=== PATIENT | female | born 1935 | race Caucasian/White ===

== ENCOUNTER → 2023-04-08 | Outpatient (CLI) | payer MEDICARE ==
[2023-04-08 17:17] LABS: THYROID STIMULATING HORMONE 2.35 uIU/mL (0.36-3.74)
== END | disposition home or self-care (01) ==
LOC: LAB 12:57
PROVIDERS: ATTEND Student in an Organized Health Care Education/Training Program
DX: I49.8 Other specified cardiac arrhythmias (principal); Z79.899 Other long term (current) drug therapy
CPT/HCPCS: 36415; 80061; 82306; 82607; 84443

== ENCOUNTER → 2023-05-28 | Outpatient (CLI) | payer MEDICARE ==
[2023-05-28 16:28] LABS: CREATININE 0.8 mg/dL (0.5-1.0); POTASSIUM 4.2 mmol/L (3.5-5.1)
== END | disposition home or self-care (01) ==
LOC: LAB 11:35
PROVIDERS: ATTEND Student in an Organized Health Care Education/Training Program
DX: I71.9 Aortic aneurysm of unspecified site, without rupture (principal)
CPT/HCPCS: 36415; 80048

== ENCOUNTER → 2023-05-29 | Outpatient (CLI) | payer MEDICARE ==
[~2023-05-29] MED LIST: IOHEXOL-350 50ML VIAL IV ONE; IOHEXOL-350 75 ML VIAL IV ONE
== END | disposition home or self-care (01) ==
LOC: RAH 11:01
PROVIDERS: ATTEND Student in an Organized Health Care Education/Training Program
DX: I70.0 Atherosclerosis of aorta (principal); I71.21 Aneurysm of the ascending aorta, without rupture; J43.9 Emphysema, unspecified; I71.9 Aortic aneurysm of unspecified site, without rupture; I73.9 Peripheral vascular disease, unspecified
CPT/HCPCS: 75635; 71275; Q9967 ×2

== ENCOUNTER → 2024-01-21 | Outpatient (CLI) | payer MEDICARE ==
[2024-01-21 12:58] LABS: CHOLESTEROL 235 mg/dL (<200); HDL CHOLESTEROL 105 mg/dL (35-85); LDL DIRECT 118 mg/dL (0-99); TRIGLYCERIDES 29 mg/dL (30-200)
== END | disposition home or self-care (01) ==
LOC: LAB 01-07 11:34
PROVIDERS: ATTEND Student in an Organized Health Care Education/Training Program
DX: E78.5 Hyperlipidemia, unspecified (principal)
CPT/HCPCS: 36415; 80061

== ENCOUNTER 2024-03-27 04:50 | Emergency (ER) | payer MEDICARE ==
[~2024-03-27] VITALS: Ht 162.6 cm; Wt 51.7 kg
--- NOTE | 2024-03-27 05:01 | ERN ---
ED Note History of Present Illness Stated Complaint: RT JAW PAIN " POPPED" Chief Complaint: Other Problems Time Seen by MD: 04:52 Dictation: 88-year-old female presented to the ER complaining of TMJ pain, pain started after she frozen her teeth she believes she has a dislocation or broken bone in the mandibular area. No history of fall. Allergies: Coded Allergies: Penicillins (Unverified Allergy, Unknown, 03/27/24) amoxicillin (Unverified Allergy, Unknown, 03/27/24) Past Medical History Past Medical History: No Pertinent History Surgical History: Other Surgical History Other: LEFT BREAST Family History: Negative Social History: Negative History: Not Applicable RN Note Reviewed/Agreed w/PFSH: Yes Review of System Dictation Constitutional: Negative for fever,chills, and weight loss Eyes: Negative for injury, pain,redness, and discharge ENT: Negative for injury,pain or swelling Cardiovascular: Negative for chest pain, palpitations, and edema Respiratory: Negative for shortness of breath, cough, and wheezing, Abdomen/GI: Negative for abdominal pain, nausea, vomiting, diarrhea, and constipation Back: Negative for injury and pain : Negative for injury, bleeding and discharge MS/Extremity: Negative for injury and deformity Skin: Negative for rash, and discoloration Neuro: Negative for headache, weakness, numbness, tingling, and seizure Psych: Negative for suicide ideation, homicidal ideation, and hallucinations Initial Vital Sign VS Vital Signs Date Time Temp Pulse Resp B/P (MAP) Pulse Ox O2 Delivery O2 Flow Rate FiO2 03/27/24 04:51 97.0 70 16 150/74 99 03/27/24 05:11 Room Air* 0 21 Physical Exam Dictation General: awake, alert, NAD Head/Face: Normocephalic, atraumatic Eyes: PERRL, EOMI, vision at baseline ENT: oral cavity clear, TMs clear, no signs of infection Neck: Trachea midline, supple, no nuchal rigidity Cardiovascular: RRR, normal S1/S2, No MRGs, no JVD Respiratory: CTAB, no respiratory distress, No rales or wheezes Abdomen: Soft, non-tender, non-distended, normal bowel sounds, no guarding or rebound. Skin: Warm, dry, normal turgor, no rash MS/Extremity: Pulses equal, no cyanosis, neurovascular intact, FROM Neuro: COAx4, GCS 15, strength 5/5, CN 2-12 intact, normal cerebellar exam, normal gait, Psych: Normal behavior, mood, and affect normal Extremities-trace edema without any palpable cords, Homans sign is negative ED Course ED Course Orders Procedure Category Date Status Time Hydromorphone 0.5mg PHA 03/27/24 Complete Syg (Dilaudid 0.5mg 05:30 Ct Maxillofacial W/O CT 03/27/24 Resulted Contrast 05:15 Ketorolac PHA 03/27/24 Complete Tromethamine 15mg/Ml 06:30 Current Medications Medications (Trade) Dose Ordered Sig/Hakan Route PRN Reason Start Time Stop Time Status Last Admin Dose Admin Hydromorphone HCl (DiLAUDid 0.5MG INJ) 0.5 mg ONCE ONCE IVP 03/27/24 05:30 03/27/24 05:31 DC 03/27/24 05:27 Ketorolac Tromethamine (toRADol) 15 mg ONCE ONCE IV 03/27/24 06:30 03/27/24 06:31 DC 03/27/24 06:30 Vital Signs Date Time Temp Pulse Resp B/P (MAP) Pulse Ox O2 Delivery O2 Flow Rate FiO2 03/27/24 05:11 74 16 154/81 97 Room Air* 0 21 03/27/24 04:51 97.0 70 16 150/74 99 Medical Decision Making MDM 88-year-old female came to the ER complaining of severe jaw pain, states that the pain started when she was flossing her teeth. Initial impression was the patient has dislocated jaw because she was only able to close the mouth well without pain. Pinched nerve in the TMJ area TMJ dislocation Imaging was performed: CT was performed with one or more of the following dose reduction techniques: Automated exposure control, adjustment of the mA and/or kV according to patient size, or use of iterative reconstruction technique. COMPARISON: None FINDINGS: Extensive streak artifact from dental hardware. No evidence for orbital wall or zygomatic arch fracture. The globes are symmetrical in their appearance, and normal in attenuation. The optic nerves and muscles are normal in caliber. No evidence of preseptal or postseptal mass. No evidence for facial bone fracture. No nasal bone fracture identified. Cribriform plate and kristel aline are intact. Nasal septum is midline. The visible paranasal sinuses are clear. Middle and inferior nasal turbinates appear unremarkable. Ostiomeatal units are patent bilaterally. Mild bilateral temporomandibular degenerative joint disease. A cortical step-off involving the articular surface of the TMJ fossa may reflect an intra-articular osteophyte in the setting of osteoarthritis. Temporomandibular joint alignment is well maintained. Moderate cervical spondylosis, including mild cervical levoscoliosis. IMPRESSION: No evidence for acute facial bone fracture or TMJ dislocation. I will provide pain medication as well information to follow up with oral maxillofacial physician in case the pain persists. All information was provided to the patient. Also patient received recommendation to try not to open her mouth too big for the next 2-3 days DX & DISP Disposition: Discharge Departure Impression: Primary Impression: TMJ (sprain of temporomandibular joint) Additional Impression: TMJ click Condition: Stable Scripts Gabapentin (Gabapentin) 100 Mg Capsule 1 CAP PO DAILY for pain for 30 Days, #5 CAP 0 Refills Prov: RADHA EVERETT MD 03/27/24 Acetaminophen (Tylenol) 500 Mg Tab 1 TAB PO Q6HPRN PRN for pain or fever for 10 Days, #30 TAB 0 Refills Prov: RADHA EVERETT MD 03/27/24 Ketorolac Tromethamine (Toradol) 10 Mg Tab 1 TAB PO Q6HPRN PRN for pain for 5 Days, #20 TAB 0 Refills Prov: RADHA EVERETT MD 03/27/24 Additional Instructions: RETURN TO ER FOR ANY ACUTE OR WORSENING SYMPTOMS. FOLLOW-UP IN 1-2 DAYS WITH PRIMARY PROVIDER FOR RECHECK OF TODAY'S SYMPTOMS. Follow up with the oral maxillofacial physician. Referrals: ZOILA AVILA MD (PCP) ARCHANA COX MD Mar 27, 2024 05:01 RADHA EVERETT MD Mar 27, 2024 08:50
[2024-03-27] MEDS: hydroMORPHone 0.5 MG SYG (0.5MG/0.5ML) IVP ONE (05:27)
[2024-03-27] MEDS: ketOROlac 15MG/ML VIAL (15MG/ML) IV ONE (06:30)
--- NOTE | 2024-03-27 08:22 | HMCIMG ---
CT FACIAL BONES WITHOUT CONTRAST INDICATION: Evaluation for right TMJ dislocation TECHNIQUE: 3D helical CT acquisition through the facial bones with coronal and sagittal reformatting. CT was performed with one or more of the following dose reduction techniques: Automated exposure control, adjustment of the mA and/or kV according to patient size, or use of iterative reconstruction technique. COMPARISON: None FINDINGS: Extensive streak artifact from dental hardware. No evidence for orbital wall or zygomatic arch fracture. The globes are symmetrical in their appearance, and normal in attenuation. The optic nerves and muscles are normal in caliber. No evidence of preseptal or postseptal mass. No evidence for facial bone fracture. No nasal bone fracture identified. Cribriform plate and kristel aline are intact. Nasal septum is midline. The visible paranasal sinuses are clear. Middle and inferior nasal turbinates appear unremarkable. Ostiomeatal units are patent bilaterally. Mild bilateral temporomandibular degenerative joint disease. A cortical step-off involving the articular surface of the TMJ fossa may reflect an intra-articular osteophyte in the setting of osteoarthritis. Temporomandibular joint alignment is well maintained. Moderate cervical spondylosis, including mild cervical levoscoliosis. IMPRESSION: No evidence for acute facial bone fracture or TMJ dislocation.
[2024-03-27] MEDS ORDERED: KETO10 PO (08:49)
[2024-03-27] MEDS ORDERED: GABA-529 PO (08:49)
[2024-03-27] MEDS ORDERED: ACET-66 PO (08:49)
--- NOTE | 2024-03-27 09:08 | NUR ---
PT WAS INSTRUCTED TO FOLLOW UP WITH DENTIST OF CHOICE, PER PT SHE WILL CALL AROUND FOR A DENTIST WHO TAKES HER INSURANCE.
[2024-03-27 09:13] VITALS: BP 142/73; PULSE 66; RESP 17; TEMP 98; O2SAT 98
== END 2024-03-27 09:05 | disposition home or self-care (01) ==
LOC: EDH 04:50
DX: S03.41XA Sprain of jaw, right side, initial encounter (principal); Z88.0 Allergy status to penicillin; Z98.890 Other specified postprocedural states; X58.XXXA Exposure to other specified factors, initial encounter; Y93.89 Activity, other specified; Y92.89 Other specified places as the place of occurrence of the external cause; Y99.8 Other external cause status
CPT/HCPCS: 99285; 96374; 70486; 96375; J1885; J1171